=== PATIENT | male | born 1950 | race Caucasian/White ===

== ENCOUNTER 2023-12-29 12:06 | Day surgery (SDC) | payer BC, MEDICAID ==
[2023-12-28 12:14] LABS: BASOPHILS # (AUTO) 0.1 X10'3 (0-0.2); BASOPHILS % (AUTO) 0.9 % (0-1); EOSINOPHILS # (AUTO) 0.2 X10'3 (0-0.9); EOSINOPHILS % (AUTO) 1.8 % (0-6); HEMATOCRIT 40.2 % (42.0-52.0); LYMPHOCYTES # (AUTO) 0.8 X10'3 (1.1-4.8); LYMPHOCYTES % (AUTO) 8.8 % (21-51); MEAN CORPUSCULAR HEMOGLOBIN 29.3 PG (27.0-31.0); MEAN CORPUSCULAR HGB CONC 32.3 g/dL (33.0-36.5); MEAN CORPUSCULAR VOLUME 90.7 FL (78-98); MEAN PLATELET VOLUME 6.5 FL (7.4-10.4); MONOCYTES # (AUTO) 0.7 X10'3 (0-0.9); MONOCYTES % (AUTO) 7.4 % (2-12); NEUTROPHILS # (AUTO) 7.6 X10'3 (1.8-7.7); NEUTROPHILS % (AUTO) 81.1 % (42-75); PLATELET COUNT 487 X10'3 (140-440); RED BLOOD COUNT 4.43 X10'6 (4.70-6.10); RED CELL DISTRIBUTION WIDTH 17.4 % (11.5-14.5); WHITE BLOOD COUNT 9.4 X10'3 (4.5-11.0)
[2023-12-28 12:25] LABS: APTT 26 SECONDS (22-32); PROTHROMBIN TIME 10.7 SECONDS (9.0-12.0)
[2023-12-28 12:27] LABS: ALBUMIN 3.4 G/DL (3.4-5.0); ANION GAP 10 (8-16); BLOOD UREA NITROGEN 15 MG/DL (7-18); BUN/CREATININE RATIO 17.4 (10.0-20.0); CALCIUM 9.2 MG/DL (8.5-10.1); CHLORIDE 103 MMOL/L (99-107); CHOLESTEROL 144 MG/DL (0-200); CREATININE 0.86 MG/DL (0.60-1.10); GLUCOSE 101 MG/DL (70-104); HDL CHOLESTEROL 48 MG/DL (35-60); LDL CHOLESTEROL 79 MG/DL (50-100); POTASSIUM 3.5 MMOL/L (3.5-5.1); SODIUM 137 MMOL/L (135-145); TOTAL CARBON DIOXIDE 23.9 MMOL/L (24-32); TRIGLYCERIDES 115 MG/DL (20-135); eGFR 87 ML/MIN
[2023-12-29] VITALS (9 sets, daily range): BP systolic 134–158; BP diastolic 72–87; PULSE 57–67; RESP 14–17; TEMP 98; O2SAT 94–98
[~2023-12-29] VITALS: Ht 170.2 cm; Wt 71.2 kg
[2023-12-29] MEDS ORDERED: LOSA25TA41 PO (12:39)
[2023-12-29] MEDS ORDERED: ONDA-104 PO (12:39)
[2023-12-29] MEDS ORDERED: CYAN-104 PO (12:39)
[2023-12-29] MEDS ORDERED: OMEP40CA21 PO (12:39)
[2023-12-29] MEDS ORDERED: ATOR40TA72 PO (12:39)
[2023-12-29] MEDS ORDERED: FERR324T PO (12:39)
[2023-12-29] MEDS ORDERED: [UNRECOGNIZED DRUG - CODE] PO (12:39)
[2023-12-29] MEDS ORDERED: CHOL500044 PO (12:39)
[2023-12-29] MEDS ORDERED: DILT90CA PO (12:39)
[2023-12-29] MEDS: LORazepam 0.5 MG tablet PO PRN (14:32)
[2023-12-29] MEDS: diphenhydrAMINE 25mg capsule PO PRN (14:32)
[2023-12-29] MEDS: normal saline 1,000 ML IV SCH (14:34)
[2023-12-29] MEDS ORDERED: LIDOcaine 1% (10mg/ml) 2ml vial ONE (14:59)
[2023-12-29] MEDS ORDERED: iohexol 350MG/ML 100ml bottle IV ONE (15:00)
[2023-12-29] MEDS ORDERED: heparin 1,000unit/ml 10ml vial 10 ML ONE (15:00)
[2023-12-29] MEDS ORDERED: verapamil 2.5 mg/ml inj IV ONE (15:00)
[2023-12-29] MEDS ORDERED: fentaNYL/PF 50MCG/1 ML 2ML syringe ONE (15:00)
[2023-12-29] MEDS ORDERED: midazolam 1 mg/ML 2ml injection ONE (15:00)
[2023-12-29] MEDS ORDERED: nitroGLYCERIN 500mcg/5mL D5W 5 ML IV ONE (15:01)
[2023-12-29] MEDS ORDERED: proCHLORperazine 10 MG/2 ml inj IV PRN (16:10)
[2023-12-29] MEDS ORDERED: OXAZEpam 15mg capsule PO PRN (16:10)
[2023-12-29] MEDS ORDERED: ondansetron/PF 4mg/2ml inj IV PRN (16:10)
== END 2023-12-29 18:30 | disposition home or self-care (01) ==
LOC: SSTAY O 12:06
PROVIDERS: ATTEND Student in an Organized Health Care Education/Training Program
DX: R94.39 Abnormal result of other cardiovascular function study (principal); I25.10 Atherosclerotic heart disease of native coronary artery without angina pectoris; I49.1 Atrial premature depolarization; I10 Essential (primary) hypertension; E78.00 Pure hypercholesterolemia, unspecified; I48.0 Paroxysmal atrial fibrillation; K21.9 Gastro-esophageal reflux disease without esophagitis; G47.00 Insomnia, unspecified; Z79.01 Long term (current) use of anticoagulants; Z79.82 Long term (current) use of aspirin; Z79.899 Other long term (current) drug therapy
CPT/HCPCS: 36415; 80048; 80061; 83880; 85025; 85610; 85730; 93005; 93458; 99152; J1644; J2250; J3010; J3490; J7030; Q0163; Q9967; A6258; A6402; A6449; C1894